=== PATIENT | male | born 1965 | race Caucasian/White ===

== ENCOUNTER 2022-02-08 11:26 | Emergency (ER) | payer OTHER ==
[~2022-02-08] VITALS: Ht 177.8 cm; Wt 73.9 kg
[2022-02-08] MEDS ORDERED: ADULT LOW DOSE81 M1 PO (12:02)
[2022-02-08] MEDS ORDERED: GLUMETZA500 MG PO (12:02)
== END 2022-02-08 17:57 | disposition home or self-care (01) ==
LOC: ER 11:26
DX: K29.70 Gastritis, unspecified, without bleeding (principal); E11.9 Type 2 diabetes mellitus without complications

== ENCOUNTER 2023-01-08 11:57 | Emergency (ER) | payer OTHER ==
[~2023-01-08] VITALS: Ht 172.7 cm; Wt 73.5 kg
[~2023-01-08 11:57] MED LIST: ADULT LOW DOSE81 M1 PO; GLUMETZA500 MG PO
== END 2023-01-08 18:16 | disposition home or self-care (01) ==
LOC: ER 11:57
DX: K29.60 Other gastritis without bleeding (principal); E11.9 Type 2 diabetes mellitus without complications; Z79.84 Long term (current) use of oral hypoglycemic drugs